=== PATIENT | male | born 1975 | race Caucasian/White ===

== ENCOUNTER 2019-01-30 18:03 | Emergency (ER) | payer MEDICARE, OTHER ==
[~2019-01-30] VITALS: Ht 185.4 cm; Wt 77.1 kg
[~2019-01-30 18:03] MED LIST: ALL DAY ALLERGY10 M2 PO; AMBIEN 5 MG TABL5 MG PO; AMITRIPTYLINE H25 M4 PO; AMOXICILLIN 50500 M1 PO; ANDROGEL2.5 GM TOP; ATHLETIC FOOT C30 GM; BUPROPION HCL PO; CELEXA40 MG PO; CIPRO500 MG PO; ERYTHROMYCIN500 MG PO; FLAGYL500 M1 PO; FLEXERIL PO; FLONASE 0.05%50 MCG; FOLIC ACID1 MG PO; HUMIRA40 MG/0.8 SUBQ; LIDODERM 5%1 PATCH; LYRICA 50 MG50 MG PO; LYRICA 75 MG CA75 MG PO; LYRICA150 MG PO; MS CONTIN 30 MG30 M1 PO; NAPROXEN DELAY500 M1 PO; NEURONTIN 400M400 M2 PO; NEURONTIN600 MG PO; OXYCODON-ACETA1 EAC1 PO; OXYCODONE HCL 55 MG PO; PERCOCET 10-321 EACH PO; REMERON15 MG PO; RHEUMATREX2.5 MG PO; SERTRALINE HCL50 MG PO; SUDAFED PO; SUMATRIPTAN SUC50 MG PO; TOPAMAX50 MG PO; UNICOMPLEX M TA1 TA1 PO; UROXATRAL PO; VIAGRA100 MG PO; VITAMIN B-12500 MCG PO; WELLBUTRIN SR150 MG PO; XANAX 0.5 MG0.5 MG PO; ZOFRAN ODT4 MG SUBLING; ZYRTEC10 M2 PO
[2019-01-30] MEDS ORDERED: PERCOCET PO (20:19)
[2019-01-30] MEDS ORDERED: NABUMETONE 750750 M1 PO (20:19)
[2019-01-30] MEDS ORDERED: KEFLEX500 M1 PO (20:19)
[2019-01-30 20:36] VITALS: BP 143/86
== END 2019-01-30 20:37 | disposition home or self-care (01) ==
LOC: M.ERS 18:03
DX: S62.633B Displaced fracture of distal phalanx of left middle finger, initial encounter for open fracture (principal); S62.635B Displaced fracture of distal phalanx of left ring finger, initial encounter for open fracture; F17.200 Nicotine dependence, unspecified, uncomplicated; W31.89XA Contact with other specified machinery, initial encounter; Y93.89 Activity, other specified; Y99.8 Other external cause status; Y92.89 Other specified places as the place of occurrence of the external cause